=== PATIENT | female | born 1950 | race Caucasian/White ===

== ENCOUNTER 2020-07-25 08:27 | Outpatient (REF) | payer MEDICARE, SELFPAY ==
[2020-07-25 10:38] LABS: MANUAL DIFF FLAG NO
[2020-07-25 10:52] LABS: Basophils Percent Auto 0.3 % (0-2); Eosinophils Absolute Auto 0.1 X10*3/uL (0.0-0.4); Eosinophils Percent Auto 2.3 % (0-4); Hematocrit 38.1 % (37-47); Hemoglobin 12.3 g/dl (12.0-16.0); Imm Gran Abs Auto 0.02 X10*3/uL (0.00-0.03); Imm Gran Pct Auto 0.6 % (0.0-0.4); Lymphocytes Absolute Auto 1.2 X10*3/uL (1.2-4.9); Lymphocytes Percent Auto 32.5 % (20-40); Mean Corpuscular HGB Conc 32.3 g/dl (31.0-35.0); Mean Corpuscular Volume 99.2 fL (80-98); Mean Platelet Volume 11.7 fL (9.4-12.3); Monocytes Absolute Auto 0.5 X10*3/uL (0.1-1.2); Monocytes Percent Auto 14.4 % (2-11); Neutrophils Absolute Auto 1.8 X10*3/uL (2.0-8.3); Neutrophils Percent Auto 49.9 % (45-73); Platelet Count 236 X10*3/uL (160-400); Red Blood Count 3.84 X10*6/uL (4.20-5.50); Red Cell Distribution Width 13.1 % (11.0-16.0); White Blood Count 3.5 X10*3/uL (4.8-10.8)
[2020-07-25 11:02] LABS: Alanine Aminotransferase 10 U/L (0-31); Albumin Level 4.3 g/dL (3.5-5.0); Alkaline Phosphatase 44 U/L (39-117); Anion Gap 11 (12-20); Aspartate Amino Transferase 17 U/L (5-31); Bilirubin Total 0.6 mg/dL (0.0-1.0); Blood Urea Nitrogen 19 mg/dL (9-16); Calcium 9.2 mg/dL (8.4-10.2); Carbon Dioxide 29 mmol/L (22-29); Chloride 106 mmol/L (96-108); Cholesterol 179 mg/dL; Estimated Glomerular Filt Rate > 60; Glucose Fasting 90 mg/dL (60-99); HDL Cholesterol 72 mg/dL; LDL Cholesterol Calculated 95 mg/dl; Potassium 4.6 mmol/l (3.3-5.1); Sodium 141 mmol/L (135-145); Total Protein 6.8 g/dL (6.5-8.0); Triglycerides 61 mg/dL
== END 2020-07-25 08:28 | disposition home or self-care (01) ==
LOC: HO.LAB 08:27
PROVIDERS: PCP Internal Medicine; Visit Provider Internal Medicine
DX: Z00.00 Encounter for general adult medical examination without abnormal findings (principal); E78.00 Pure hypercholesterolemia, unspecified
CPT/HCPCS: 36415; 80053; 80061; 85025

== ENCOUNTER 2021-07-24 07:40 | Outpatient (REF) | payer MEDICARE, SELFPAY ==
[2021-07-24 10:25] LABS: MANUAL DIFF FLAG NO
[2021-07-24 10:31] LABS: Basophils Percent Auto 0.3 % (0-2); Eosinophils Absolute Auto 0.1 X10*3/uL (0.0-0.4); Eosinophils Percent Auto 2.8 % (0-4); Hematocrit 36.6 % (37-47); Hemoglobin 11.7 g/dl (12.0-16.0); Imm Gran Abs Auto 0.02 X10*3/uL (0.00-0.03); Imm Gran Pct Auto 0.6 % (0.0-0.4); Lymphocytes Absolute Auto 1.4 X10*3/uL (1.2-4.9); Lymphocytes Percent Auto 38.6 % (20-40); Mean Corpuscular Hemoglobin 31.6 pg (27.0-33.0); Mean Corpuscular Volume 98.9 fL (80-98); Mean Platelet Volume 11.5 fL (9.4-12.3); Monocytes Absolute Auto 0.6 X10*3/uL (0.1-1.2); Monocytes Percent Auto 17.8 % (2-11); Neutrophils Absolute Auto 1.4 X10*3/uL (2.0-8.3); Neutrophils Percent Auto 39.9 % (45-73); Platelet Count 232 X10*3/uL (160-400); Red Cell Distribution Width 12.8 % (11.0-16.0); White Blood Count 3.6 X10*3/uL (4.8-10.8)
[2021-07-24 10:47] LABS: Alanine Aminotransferase 7 U/L (0-31); Alkaline Phosphatase 45 U/L (39-117); Anion Gap 9 (12-20); Aspartate Amino Transferase 16 U/L (5-31); Bilirubin Total 0.5 mg/dL (0.0-1.0); Blood Urea Nitrogen 18 mg/dL (9-16); Calcium 9.4 mg/dL (8.4-10.2); Carbon Dioxide 28 mmol/L (22-29); Chloride 108 mmol/L (96-108); Cholesterol 160 mg/dL; Estimated Glomerular Filt Rate > 60; Glucose Fasting 90 mg/dL (60-99); HDL Cholesterol 61 mg/dL; LDL Cholesterol Calculated 86 mg/dl; Potassium 4.3 mmol/L (3.3-5.1); Sodium 141 mmol/L (135-145); Total Protein 6.4 g/dL (6.5-8.0); Triglycerides 65 mg/dL
== END 2021-07-24 07:41 | disposition home or self-care (01) ==
LOC: HO.10HDL 07:40
PROVIDERS: Visit Provider Internal Medicine
DX: E78.00 Pure hypercholesterolemia, unspecified (principal); J30.1 Allergic rhinitis due to pollen
CPT/HCPCS: 36415; 80053; 80061; 85025

== ENCOUNTER 2021-07-25 16:15 | Outpatient (REF) | payer MEDICARE, SELFPAY ==
--- NOTE | ~2021-07-25 | MM_ITS ---
EXAMINATION: MM SCREENING DIGITAL BREAST TOMOSYNTHESIS, BILATERAL CLINICAL INFORMATION: Screening. Asymptomatic. The lifetime risk of breast cancer based on the Tyrer-Cuzick Model is 5%. COMPARISON: Mammography: 06/21/2020, 03/16/2019, 02/27/2018 TECHNIQUE: Digital breast tomosynthesis is performed in both the craniocaudal and mediolateral oblique views along with computer-aided detection (CAD). Synthesized 2D images are generated from the tomosynthesis. FINDINGS: The breasts are heterogeneously dense, which may obscure small masses (ACR BI-RADS breast composition Category c). There are no significant masses, abnormal calcifications, or other abnormalities. Parenchymal pattern is similar to prior exams. No developing density. No significant changes. MM/MM tomosynthesis screening BI IMPRESSION: No mammographic evidence of malignancy. ASSESSMENT: BI-RADS 1: Negative RECOMMENDATION: Routine annual mammography screening. This patient's information was entered into a reminder system with a target due date for their next mammogram.
== END 2021-07-25 16:16 | disposition home or self-care (01) ==
LOC: HO.MAMMO 16:15
PROVIDERS: PCP Internal Medicine; Visit Provider Internal Medicine
DX: Z12.31 Encounter for screening mammogram for malignant neoplasm of breast (principal)
CPT/HCPCS: 77063; 77067

== ENCOUNTER 2022-04-03 14:49 | Outpatient (REF) | payer MEDICARE, SELFPAY ==
[2022-04-03 15:20] LABS: COVID-19 Test Negative (Negative); IDNOW Serial# 16C4AD1C
== END 2022-04-03 14:50 | disposition home or self-care (01) ==
LOC: HO.LNP 14:49
PROVIDERS: Visit Provider Internal Medicine
DX: Z20.822 Contact with and (suspected) exposure to COVID-19 (principal)
CPT/HCPCS: 87635

== ENCOUNTER 2022-07-24 07:24 | Outpatient (REF) | payer MEDICARE, SELFPAY ==
[2022-07-24 11:20] LABS: Basophils Percent Auto 0.6 % (0-2); Eosinophils Absolute Auto 0.1 X10*3/uL (0.0-0.4); Hematocrit 38.7 % (37.0-47.0); Hemoglobin 12.4 g/dl (12.0-16.0); Imm Gran Abs Auto 0.01 X10*3/uL (0.00-0.03); Imm Gran Pct Auto 0.3 % (0.0-0.4); Lymphocytes Absolute Auto 1.3 X10*3/uL (1.2-4.9); Lymphocytes Percent Auto 36.9 % (20-40); MANUAL DIFF FLAG SCAN; Mean Corpuscular Hemoglobin 31.6 pg (27.0-33.0); Mean Corpuscular Volume 98.7 fL (80.0-98.0); Mean Platelet Volume 11.6 fL (9.4-12.3); Monocytes Absolute Auto 0.8 X10*3/uL (0.1-1.2); Neutrophils Absolute Auto 1.4 x10*3/uL (2.0-8.3); Neutrophils Percent Auto 37.2 % (45-73); Platelet Count 244 X10*3/uL (160-400); Red Blood Count 3.92 X10*6/uL (4.20-5.50); SCAN SMEAR FLAG 1; White Blood Count 3.6 X10*3/uL (4.8-10.8)
[2022-07-24 11:50] LABS: SLIDE REVIEW VERIFIED
[2022-07-24 11:54] LABS: Alanine Aminotransferase 7 U/L (0-31); Albumin Level 4.1 g/dL (3.5-5.0); Alkaline Phosphatase 51 U/L (39-117); Anion Gap 14 (12-20); Aspartate Amino Transferase 15 U/L (5-31); Bilirubin Total 0.5 mg/dL (0.0-1.0); Blood Urea Nitrogen 18 mg/dL (9-16); Calcium 9.2 mg/dL (8.4-10.2); Carbon Dioxide 27 mmol/L (22-29); Chloride 106 mmol/L (96-108); Cholesterol 175 mg/dL; Estimated Glomerular Filt Rate 59; Glucose Fasting 92 mg/dL (60-99); HDL Cholesterol 61 mg/dL; LDL Cholesterol Calculated 96 mg/dl; Potassium 4.3 mmol/L (3.3-5.1); Sodium 143 mmol/L (135-145); Total Protein 6.7 g/dL (6.5-8.0); Triglycerides 94 mg/dL
[2022-07-24 12:20] LABS: Vitamin D 25-OH Total 27.1 ng/mL (>30)
== END 2022-07-24 07:25 | disposition home or self-care (01) ==
LOC: HO.WFDLDS 07:24
PROVIDERS: Visit Provider Internal Medicine
DX: E78.00 Pure hypercholesterolemia, unspecified (principal); J30.1 Allergic rhinitis due to pollen
CPT/HCPCS: 36415; 80053; 80061; 82306; 85025

== ENCOUNTER 2022-07-31 15:55 | Outpatient (REF) | payer MEDICARE, SELFPAY ==
--- NOTE | ~2022-07-31 | MM_ITS ---
EXAMINATION: MM SCREENING DIGITAL BREAST TOMOSYNTHESIS, BILATERAL CLINICAL INFORMATION: Screening. Asymptomatic. The lifetime risk of breast cancer based on the Tyrer-Cuzick Model is 5.0%. COMPARISON: Mammography: July 25, 2021 and studies dating back to December 13, 2013 TECHNIQUE: Digital breast tomosynthesis is performed in both the craniocaudal and mediolateral oblique views along with computer-aided detection (CAD). Synthesized 2D images are generated from the tomosynthesis. FINDINGS: The breasts are heterogeneously dense, which may obscure small masses (ACR BI-RADS breast composition Category c). There are no significant masses, abnormal calcifications, or other abnormalities. MM/MM tomosynthesis screening BI IMPRESSION: No significant changes from prior exam. ASSESSMENT: BI-RADS 1: Negative RECOMMENDATION: Routine annual mammography screening. This patient's information was entered into a reminder system with a target due date for their next mammogram.
== END 2022-07-31 15:56 | disposition home or self-care (01) ==
LOC: HO.MAMMO 15:55
PROVIDERS: PCP Internal Medicine; Visit Provider Internal Medicine
DX: Z12.31 Encounter for screening mammogram for malignant neoplasm of breast (principal)
CPT/HCPCS: 77063; 77067

== ENCOUNTER 2023-01-24 10:17 | Day surgery (SDC) | payer MEDICARE, SELFPAY ==
[2023-01-24 10:57] VITALS: BMI 21.1
[2023-01-24 11:04] VITALS: BP 129/40; PULSE 85; RESP 16; TEMP 36.8; O2SAT 97
[2023-01-24] MEDS: Lactated Ringers 1,000 ML 50 ML IVCONT (11:23)
--- NOTE | 2023-01-24 11:33 | HO.ANESPROP2 ---
HPI - Anesthesia Eval Consult details Narrative: for colon screen [facility] Past Medical History Medical History (Updated 01/24/23 @ 10:55 by Dianna Gordon RN) Bilateral cataracts Elevated cholesterol Insomnia Family History Family history of problems with anesthesia: No Surgical History Surgical History (Updated 01/24/23 @ 10:55 by Dianna Gordon RN) H/O blepharoplasty H/O colonoscopy History of Problems with Anesthesia: No Social History Social History Patient Tobacco Use Status: Never used Tobacco Use of substances other than those prescribed or required for medical reasons: No Are you DNR?: No Advance Directives: No Advance Directives Information Provided: Yes Recently lost weight without trying: No Nutrition Risks: No Nutritional Risk Meds Allergies Allergy/AdvReac Type Severity Reaction Status Date / Time No Known Allergies Allergy Unverified 06/29/20 15:01 Home Medications Medication Instructions Recorded Confirmed Last Taken Type Ambien 1 tab PO BEDTIME PRN Insomnia 01/23/23 01/23/23 Unknown History simvastatin 80 mg PO DAILY 01/23/23 01/24/23 01/24/23 History Exam Exam Date and Time: January 24, 2023 1133 Height,Weight and Vital Signs: Height 5 ft 7 in Weight 61.235 kg Last Vital Signs Temp 98.3 F 01/24/23 11:04 Pulse 85 01/24/23 11:04 Resp 16 01/24/23 11:04 BP 129/40 L 01/24/23 11:04 Pulse Ox 97 01/24/23 11:04 O2 Del Method Room Air 01/24/23 11:04 Airway Mallampati Class: II TM Dist: >3cm Neck ROM: Full Heart: rrr Lungs: cta Assessment and Plan Assessment Anesthesia Assessment: Anesthesia Plan Discussed and Chart Reviewed Final Anesthetic Review Family History of Problems with Anesthesia: No History of Problems with Anesthesia: No NPO: Yes ASA Class: II Final Preanesthetic Review: No Changes in Pt Med Stat, Meds/Allgs Chart Reviewed, Consent Obtained/Reviewed and Anes Risks/Benef Reviewed Patient Risk: Low Procedure Risk: Low Anesthetic Plan Anesthetic Plan: MAC: Disposition: Standard PACU
--- NOTE | 2023-01-24 11:53 | MHC.SHP ---
Pre-Procedural Eval Section A Date of Service: 01/24/23 The patient is an INPATIENT: No Changes since office visit: No Cold of Flu in the past 2 weeks, No New Medical Problems, No Changes in Medication and No Patient answered all questions The History & Physical has been completed within 30 days and I have reviewed it.: Yes Section B Chief Complaint: Encounter for screening for malignant neoplasm of Allergies: Allergies Allergy/AdvReac Type Severity Reaction Status Date / Time No Known Allergies Allergy Unverified 06/29/20 15:01 Plan I have reviewed the history and physical and performed a pertinent physical examination on my patient. No changes have occurred unless specified. Time Spent With Patient Time: Total time managing care of this patient today ____ minutes.
[2023-01-24 12:28] VITALS: BP 92/45; PULSE 70; RESP 16; TEMP 36.2; O2SAT 96
--- NOTE | 2023-01-24 12:28 | PM.OP ---
Brief Operative Note Date of Service: 01/24/23 Pre-op diagnosis: screening Post-op diagnosis: same Procedure: colonoscopy Surgeon: Kobi Graevs Anesthesia: MAC Was an Seed Cleaning Machine Operator used for this Procedure?: No Estimated blood loss (mL): 5 Pathology: other Condition: stable Disposition: PACU
[2023-01-24 12:43] VITALS: BP 121/57; PULSE 67; RESP 16; TEMP 36.6; O2SAT 97
--- NOTE | 2023-01-24 12:46 | OP_ITS ---
DATE OF SERVICE: 01/24/2023 SURGEON: Kobi Graves MD INDICATIONS: Colon cancer screening. PREOPERATIVE DIAGNOSIS: POSTOPERATIVE DIAGNOSIS: PROCEDURE PERFORMED: Colonoscopy to the terminal ileum with biopsy. ESTIMATED BLOOD LOSS: COMPLICATIONS: ANESTHESIA: Monitored anesthesia care. ASSISTANTS: SPECIMENS: DESCRIPTION OF PROCEDURE: A history and physical were performed the risks and benefits of the procedure were explained to the patient. Informed consent was obtained. The patient was placed in the left lateral decubitus position. A digital rectal exam was performed and was found to be normal. The Olympus pediatric video colonoscope was introduced into the rectum and advanced to the cecum without difficulty. The cecum was identified by transillumination, palpation, and identification of ileocecal valve. Examination was performed. The scope was removed. She tolerated the procedure well and was returned to the recovery area in stable condition. FINDINGS: The terminal ileum was briefly examined and appeared normal. The visualized colonic mucosa was within normal limits without evidence of masses or ulcers. A single polyp in the cecum measuring less than 5 mm was identified and removed with biopsy forceps. No other polyps were identified. Retroflexed examination showed moderate-sized internal hemorrhoids and hypertrophic anal papillae. The quality of the prep was good. IMPRESSION: Colon polyp. RECOMMENDATION: Follow up the biopsy results. MD CHANDLER Bustillos/RANDOLPHL / [id number]
--- NOTE | 2023-01-24 13:43 | HO.ANESPROP2 ---
HPI - Anesthesia Eval Consult details Narrative: for [facility] Past Medical History Medical History (Updated 01/24/23 @ 10:55 by Dianna Gordon RN) Bilateral cataracts Elevated cholesterol Insomnia Family History Family history of problems with anesthesia: No Surgical History Surgical History (Updated 01/24/23 @ 10:55 by Dianna Gordon RN) H/O blepharoplasty H/O colonoscopy History of Problems with Anesthesia: No Social History Social History Patient Tobacco Use Status: Never used Tobacco Use of substances other than those prescribed or required for medical reasons: No Are you DNR?: No Advance Directives: No Advance Directives Information Provided: Yes Recently lost weight without trying: No Nutrition Risks: No Nutritional Risk Meds Allergies Allergy/AdvReac Type Severity Reaction Status Date / Time No Known Allergies Allergy Unverified 06/29/20 15:01 Active Medications: Current Medications Lactated Ringer's (Lr) 1,000 mls @ 50 mls/hr IVCONT .Q20H YOVANI Last Admin: 01/24/23 11:23 Dose: 50 mls/hr Home Medications Medication Instructions Recorded Confirmed Last Taken Type Ambien 1 tab PO BEDTIME PRN Insomnia 01/23/23 01/23/23 Unknown History simvastatin 80 mg PO DAILY 01/23/23 01/24/23 01/24/23 History Exam Exam Date and Time: January 24, 2023 1343 Height,Weight and Vital Signs: Height 5 ft 7 in Weight 61.235 kg Last Vital Signs Temp 97.8 F 01/24/23 12:43 Pulse 67 01/24/23 12:43 Resp 16 01/24/23 12:43 BP 121/57 L 01/24/23 12:43 Pulse Ox 97 01/24/23 12:43 O2 Del Method Room Air 01/24/23 12:43 Airway Mallampati Class: III TM Dist: <=3cm Neck ROM: Full Heart: rrr Lungs: cta Assessment and Plan Assessment Anesthesia Assessment: Anesthesia Plan Discussed and Chart Reviewed Final Anesthetic Review Family History of Problems with Anesthesia: No History of Problems with Anesthesia: No NPO: Yes ASA Class: IV Final Preanesthetic Review: No Changes in Pt Med Stat, Meds/Allgs Chart Reviewed, Consent Obtained/Reviewed and Anes Risks/Benef Reviewed Patient Risk: Intermediate Procedure Risk: Intermediate Anesthetic Plan Anesthetic Plan: MAC: Disposition: Standard PACU
== END 2023-01-24 13:20 | disposition home or self-care (01) ==
PROVIDERS: PCP Internal Medicine; Visit Provider Internal Medicine Gastroenterology
PROC: 0DJD8ZZ Inspection of Lower Intestinal Tract, Via Natural or Artificial Opening Endoscopic (ICD-10-PCS; CPT 45378; principal; 2023-01-24 11:30)
DX: Z12.11 Encounter for screening for malignant neoplasm of colon (principal); D12.0 Benign neoplasm of cecum; K64.8 Other hemorrhoids; K62.89 Other specified diseases of anus and rectum; R19.7 Diarrhea, unspecified; K21.9 Gastro-esophageal reflux disease without esophagitis; E78.00 Pure hypercholesterolemia, unspecified; G47.00 Insomnia, unspecified; Z79.899 Other long term (current) drug therapy
CPT/HCPCS: 45380; 88305; J2370

== ENCOUNTER 2023-07-22 07:04 | Outpatient (REF) | payer MEDICARE, SELFPAY | END 2023-07-22 07:05 | disposition home or self-care (01) | LOC: HO.WFDLDS 07:04 | PROVIDERS: Visit Provider Internal Medicine | DX: E78.00 Pure hypercholesterolemia, unspecified (principal); E55.9 Vitamin D deficiency, unspecified; J30.1 Allergic rhinitis due to pollen | CPT/HCPCS: 36415; 80053; 80061; 82306; 85025 ==

== ENCOUNTER 2023-08-06 15:38 | Outpatient (REF) | payer MEDICARE, SELFPAY | END 2023-08-06 15:39 | disposition home or self-care (01) | LOC: HO.MAMMO 15:38 | PROVIDERS: PCP Internal Medicine; Visit Provider Internal Medicine | DX: Z12.31 Encounter for screening mammogram for malignant neoplasm of breast (principal) | CPT/HCPCS: 77063; 77067 ==

== ENCOUNTER → 2023-08-06 16:00 | Outpatient (BNV) | payer MEDICARE, SELFPAY | PROVIDERS: PCP Internal Medicine; Visit Provider Radiology Diagnostic Radiology | DX: Z12.31 Encounter for screening mammogram for malignant neoplasm of breast (principal) | CPT/HCPCS: 77063; 77067 ==

== ENCOUNTER 2024-07-27 07:52 | Outpatient (REF) | payer MEDICARE, SELFPAY ==
[2024-07-27 11:11] LABS: MANUAL DIFF FLAG NO
[2024-07-27 11:29] LABS: Basophils Percent Auto 0.4 % (0-2); Eosinophils Absolute Auto 0.1 X10*3/uL (0.0-0.4); Eosinophils Percent Auto 1.7 % (0-4); Hematocrit 38.5 % (37.0-47.0); Hemoglobin 12.1 g/dl (12.0-16.0); Imm Gran Abs Auto 0.02 X10*3/uL (0.00-0.03); Imm Gran Pct Auto 0.4 % (0.0-0.4); Lymphocytes Absolute Auto 1.3 X10*3/uL (1.2-4.9); Mean Corpuscular HGB Conc 31.4 g/dl (31.0-35.0); Mean Corpuscular Hemoglobin 31.1 pg (27.0-33.0); Mean Platelet Volume 11.3 fL (9.4-12.3); Monocytes Absolute Auto 0.7 X10*3/uL (0.1-1.2); Monocytes Percent Auto 13.7 % (2-11); Neutrophils Absolute Auto 2.7 x10*3/uL (2.0-8.3); Neutrophils Percent Auto 55.8 % (45-73); Platelet Count 257 X10*3/uL (160-400); Red Blood Count 3.89 X10*6/uL (4.20-5.50); Red Cell Distribution Width 12.6 % (11.0-16.0); White Blood Count 4.8 X10*3/uL (4.8-10.8)
[2024-07-27 11:54] LABS: Alanine Aminotransferase 10 U/L (0-31); Alkaline Phosphatase 42 U/L (39-117); Anion Gap 11 (12-20); Aspartate Amino Transferase 19 U/L (5-31); Bilirubin Total 0.5 mg/dL (0.0-1.0); Blood Urea Nitrogen 18 mg/dL (9-16); Calcium 9.7 mg/dL (8.4-10.2); Carbon Dioxide 28 mmol/L (22-29); Chloride 107 mmol/L (96-108); Cholesterol 165 mg/dL (<200); Estimated Glomerular Filt Rate > 60; Glucose Fasting 89 mg/dL (60-99); HDL Cholesterol 58 mg/dL (>40); LDL Cholesterol Calculated 93 mg/dL (<100); Potassium 4.2 mmol/L (3.3-5.1); Sodium 142 mmol/L (135-145); Total Protein 6.9 g/dL (6.5-8.0); Triglycerides 71 mg/dL (<150)
== END 2024-07-27 07:53 | disposition home or self-care (01) ==
LOC: HO.WFDLDS 07:52
PROVIDERS: Visit Provider Internal Medicine
DX: E78.00 Pure hypercholesterolemia, unspecified (principal); N18.9 Chronic kidney disease, unspecified; E55.9 Vitamin D deficiency, unspecified
CPT/HCPCS: 36415; 80053; 80061; 82306; 85025

== ENCOUNTER 2024-08-11 08:49 | Outpatient (REF) | payer MEDICARE, SELFPAY ==
--- NOTE | ~2024-08-11 | MM_ITS ---
EXAMINATION: MM SCREENING DIGITAL BREAST TOMOSYNTHESIS, BILATERAL CLINICAL INFORMATION: Screening. Asymptomatic. COMPARISON: Mammography: Comparison is made with available priors TECHNIQUE: Digital breast mammography with tomosynthesis is performed in both the craniocaudal and mediolateral oblique views along with computer-aided detection (CAD). FINDINGS: The breasts are heterogeneously dense, which may obscure small masses (ACR BI-RADS breast composition Category c). There are no significant masses, abnormal calcifications, or other abnormalities. MM/MM tomosynthesis screening BI IMPRESSION: No mammographic evidence of malignancy. ASSESSMENT: BI-RADS BI-RADS 1 - Negative RECOMMENDATION: Routine annual mammography screening. 1 year F/U This examination should not preclude the clinical evaluation of a suspicious palpable abnormality. This patient's information was entered into a reminder system with a target due date for their next mammogram. Electronically signed by: Dee Muñoz DO 08/19/2024 10:47 AM ALEJANDRA
== END 2024-08-11 08:50 | disposition home or self-care (01) ==
LOC: HO.MAMMO 08:49
PROVIDERS: PCP Internal Medicine; Visit Provider Internal Medicine
DX: Z12.31 Encounter for screening mammogram for malignant neoplasm of breast (principal)
CPT/HCPCS: 77063; 77067

== ENCOUNTER → 2024-08-11 09:00 | Outpatient (BNV) | payer MEDICARE, SELFPAY | PROVIDERS: PCP Internal Medicine; Visit Provider Internal Medicine | DX: Z12.31 Encounter for screening mammogram for malignant neoplasm of breast (principal) | CPT/HCPCS: 77063; 77067 ==

== ENCOUNTER 2025-01-14 09:02 | Outpatient (AMB) | payer MEDICARE, SELFPAY ==
--- NOTE | 2025-01-14 09:10 | A.OFFPC_ITS ---
Vital Signs 3 01/14/25 09:12 Height 5 ft 7.32 in Weight 135 lb 8 oz BMI 21.0 BP 110/66 Blood Pressure Location Lt brachial Position Sitting Pulse 82 Pulse Source Pulse Oximeter Temp 97 F Temp Source Temporal Artery Scan Pulse Oximetry (%) 95 Oxygen Delivery Method Room Air Intake Visit Reasons: Establish care- previous Tabitha patient Intake Note: Patient is a new patient here to establish care for High cholesterol, Insomnia, Seasonal Allergies. Transferring care from Dr Lu. Medical records have been requested and have received. Human Resources Representative Required: No Piccolo Mechanic: Not Required per policy Accompanied by: Self / Same As Patient Allergies No Known Allergies Allergy (Verified 01/14/25 09:18) Medication List - Last Reconciled 01/14/25 by Huong Chang PA-C simvastatin 40 mg PO BEDTIME zolpidem 5 mg PO BEDTIME PRN Tobacco use date assessed: 01/14/25 Fall risk assessment: No Falls in past year Last assessed Fall Risk: 01/14/25 Dental Screening Dental Screen Date: 01/14/25 Did you have a dental visit in the last 12 months?: Yes Did you have a dental problem in the last 6 months where you did not have access to dental care?: No Was dental information given to patient?: Patient has dentist HPI Establish care- previous Tabitha patient 2 HPI0 Details 74-year-old female coming to the office for the 1st time. Last seen by Dr. Lu 07/23/2024 for annual exam. Patient has a past medical history of insomnia, low vitamin-D, chronic renal insufficiency and hypercholesterolemia. Presenting with management of hypercholesterolemia and insomnia. Previously diagnosed with hypercholesterolemia, controlled with Simvastatin 80 mg, with a recent cholesterol level of 93 mg/dL. Due to risks of muscle breakdown, a reduction to Simvastatin 40 mg is advised, given no cardiac or diabetic history. Insomnia persists over several decades, worsened by travel. Successfully managed on low-dose Ambien and OTC sleep aids. Patient requires Ambien for travel- related insomnia. Asymptomatic lipoma on the hand noted. Patient has a very active lifestyle with hiking and biking. Mammogram: 08/11/2024 DEXA scan: due plan for Jul 2024 Eye exam: UTD Colonoscopy: 2022 likely 10 years [facility] Medical History Bilateral cataracts Insomnia Elevated cholesterol Surgical History H/O blepharoplasty H/O colonoscopy Social History Housing: House Alcohol intake: current Alcohol intake frequency: holidays/special occasions only Patient Tobacco Use Status: Never used Tobacco e-Cigarette/Vaping Use: Never Used Second Hand Smoke Exposure: No service: No Current occupational status: retired Cognitive needs: No Hearing needs: No Vision needs: Yes (Reading Glasses) Questionnaire PHQ-9 Over the last 2 weeks, how often have you been bothered by any of the following problems? 1. Little interest or pleasure in doing things: not at all 2. Feeling down, depressed, or hopeless: not at all 3. Trouble falling or staying asleep, or sleeping too much: not at all 4. Feeling tired or having little energy: not at all 5. Poor appetite or overeating: not at all 6. Feeling bad about yourself - or that you are a failure or have let yourself or your family down: not at all 7. Trouble concentrating on things, such as reading the newspaper or watching television: not at all 8. Moving or speaking so slowly that other people could have noticed. Or the opposite - being so fidgety or restless that you have been moving around a lot more than usual: not at all 9. Thoughts that you would be better off or of hurting yourself in some way: not at all Total score: 0 Depression Screening Interpretation: Negative Depression Screening Done: Yes Source: Developed by Drs. Tom Cr, Angelika Murillo, Antwan Espinoza and colleagues, with an educational rommel from [employer]. Thrive Questionnaire Date Thrive assessed: 01/09/25 I am a: Patient What is your living situation today?: I have a steady place to live Within the past 12 months, did the food you bought not last and you didn't have the money to get more?: Never true Within the past 12 months, did you worry whether your food would run out before you got money to buy more?: Never true Do you have trouble paying for medicines?: No Do you have trouble getting transportation to medical appointments?: No Do you have trouble paying your heating and electricity bill?: No Do you have trouble taking care of your child, family member or friend?: No Do you have trouble with day-to-day activities such as bathing, preparing meals, shopping, managing finances, etc.?: No Are you currently unemployed and looking for a job?: No Are you interested in more education?: No Please select the resources that you would like help with: None Currently or been in a relationship where the following occur: No concerns reported THRIVE Score: 0 AUDIT C Alcohol Use Questionnaire (AUDIT-C) 1. How often do you have a drink containing alcohol?: 2-4 times a month 2. How many drinks containing alcohol do you have on a typical day when you are drinking?: 1 or 2 3. How often do you have six or more drinks on one occasion?: Never Total Score: 2 SYMONE-7 AMB Questionnaire SYMONE-7 Date SYMONE - 7 assessed: 01/14/25 Feeling nervous, anxious, or on edge: 0 = Not at all Not being able to stop or control worryin = Not at all Worrying too much about different things: 0 = Not at all Trouble relaxin = Not at all Being so restless that it is hard to sit still: 0 = Not at all Becoming easily annoyed or irritable: 0 = Not at all Feeling afraid as if something awful might happen: 0 = Not at all Total SYMONE-7 score (0-4 normal; 5-9 mild; 10-14 moderate; 15-21 severe): 0 Source: Developed by Drs. Tom Cr, Angelika Murillo, Antwan Espinoza and colleagues, with an educational rommel from [employer]. SYMONE-7 Assessment Billing SYMONE-7 Assessment Tool: SYMONE-7 Assessment 70646 Review of Systems Const Denies body aches, Denies chills, Denies fever(s), Denies headache(s) and Denies poor appetite Eyes Reports no additional complaints ENT Denies dysphagia, Denies dizziness, Denies headache(s) and Denies odynophagia Card Denies chest pain, Denies syncope, Denies edema, Denies irregular heart rhythm, Denies lightheadedness and Denies dyspnea Resp Denies cough and Denies dyspnea GI Denies abdominal pain, Denies constipation, Denies dysphagia, Denies diarrhea, Denies nausea, Denies odynophagia and Denies vomiting Reports no additional complaints Musc Reports no additional complaints and Denies abnormal gait Skin/Breast Reports system reviewed and no additional complaints, except as documented Neuro Denies abnormal gait, Denies dizziness, Denies syncope and Denies headache(s) Psych Reports no additional complaints Physical exam (Primary Care) Vital Signs: Last Vital Signs Temp 97 F 01/14/25 09:12 Pulse 82 01/14/25 09:12 BP 110/66 01/14/25 09:12 Pulse Ox 95 01/14/25 09:12 Oxygen Delivery Method Room Air 01/14/25 09:12 BMI result Body Mass Index 21.0 Tobacco/Smoking Status: Tobacco use Status Tobacco use date assessed 01/14/25 01/14/25 09:13 Patient Tobacco Use Status Never used Tobacco 01/14/25 09:19 e-Cigarette/Vaping Use Never Used 01/14/25 09:19 PHQ-9: PHQ-9 Score PHQ-9: Total score 0 01/14/25 09:13 Depression Screening Interpretation: Negative Thrive Assessment: Date of Thrive Assessment Date Thrive assessed 01/09/25 01/14/25 09:13 Currently or been in a relationship where the following occur: No concerns reported Const General: cooperative, healthy appearing, comfortable and no acute distress Orientation/consciousness: patient oriented x3 [facility] Head: Yes normocephalic Ears: hearing grossly normal bilaterally General nose exam: Normal external nose present Eyes General: appearance normal, both eyes and all related structures Conjunctivae: conjunctivae normal Neck Neck: Yes full ROM and Yes no lymphadenopathy Resp Effort & Inspection: normal respiratory effort Auscultation: clear to auscultation bilaterally, no crackles, no rales, no rhonchi and no wheezes Cardio Rate: regular rate Rhythm: regular rhythm Skin General skin exam: no rashes or lesions noted Neuro General: patient oriented x3 Gait exam (Neuro): Normal gait present Extrem General: Yes normal to inspection, Yes full ROM and No edema Hand/finger images: 2 1. small, soft, nontender mass with normal borders Psych Affect: normal affect Attitude: cooperative Insight: Good insight present (Psych) Judgement: Good judgement present (Psych) Coding Level of Care Code New Pt Level 4 (06434) Diagnoses Chronic renal insufficiency N18.9 Vitamin D deficiency E55.9 Hay fever J30.1 Hypercholesterolemia E78.00 Insomnia G47.00 Lipoma D17.9 Additional Codes SYMONE-7 Assessment Billing - SYMONE-7 Assessment Tool: SYMONE-7 Assessment 04090 ([id number]) Assessment & Plan Assessment & Plan (1) Chronic renal insufficiency: Code(s): N18.9 - Chronic kidney disease, unspecified Category: Medical Plan: Continue to monitor renal function. Avoid kidney irritants such as NSAIDs and stay well hydrated. (2) Vitamin D deficiency: Code(s): E55.9 - Vitamin D deficiency, unspecified Category: Medical Plan: Not currently on supplementation with vitamin-D. Continue to monitor lab work (3) Hay fever: Code(s): J30.1 - Allergic rhinitis due to pollen Category: Medical Plan: Use [id number] antihistamines as needed for allergy season. (4) Hypercholesterolemia: Comment: LDL 93 07/2024 Code(s): E78.00 - Pure hypercholesterolemia, unspecified Category: Medical Plan: Avoid foods that are high in cholesterol such as red meat, fried foods, eggs and baked goods. Triglyceride goal of less than 150 and LDL goal of less than 100. Plan to decrease Simvastatin to 40mg and repeat labs in 3 months. (5) Insomnia: Code(s): G47.00 - Insomnia, unspecified Category: Medical Plan: Patient is currnently using Ambien as needed for sleep. (6) Lipoma: Code(s): D17.9 - Benign lipomatous neoplasm, unspecified Category: Medical Plan: Soft tissue mass of the right palm likely a lipoma. Plan to continue to monitor at this time. I did offer referral to general surgery for removal which was declined. Plan I will adjust the patient's Simvastatin dosage to 40 mg to reduce the risks of muscle side effects while controlling cholesterol effectively, monitoring lipid levels after three months. Dietary advice on reducing cholesterol intake was discussed. Ambien 5 mg is prescribed for her travel-related insomnia. Vitamin D levels will be monitored, continuing with current supplementation routine. The asymptomatic lipoma will be monitored at this time. Planning for future screenings remain scheduled for July. Ongoing monitoring of laboratory parameters including kidney and liver function is crucial for comprehensive care. This note was constructed using voice recognition software. While every effort has been made to ensure accuracy and solar photovoltaic crew lead, still areas may have been included sometimes these areas may affect the content or meeting of the given symptoms. Total time spent caring for the patient today was 30 minutes. This includes time spent before the visit reviewing the chart, time spent during the visit, and time spent after the visit and documentation. Patient was informed and verbally consented to the use of an ambient scribe for clinic note documentation during this visit. Orders: Orders 2 Vitamin D 25-OH Total Today E55.9 - Vitamin D deficiency, unspecified Comprehensive Met. Panel Today N18.9 - Chronic kidney disease, unspecified Lipid Panel Today E78.00 - Pure hypercholesterolemia, unspecified Medications: New 2 simvastatin 40 mg PO BEDTIME 90 tabs 0RF zolpidem 5 mg PO BEDTIME PRN 30 tabs 0RF sleep
[2025-01-14 09:12] VITALS: BP 110/66; PULSE 82; TEMP 36.1; O2SAT 95; BMI 21.0
--- OUTSIDE RECORDS SUMMARY | 2025-01-14 09:43 | XMS_ITS | Patient Health Record ---
Author Organization [facility] Address [address] [place] [address] Care Team Providers Care Intramural Director Name Role Phone Bob Lu MD Primary Care Provider Kobi Oswald Jr Unavailable Allergies Allergen (clinical drug ingredient) Drug/Non Drug Allergy documented on EMR Reaction Allergy Type Onset Date Status season (uncoded) Unknown Allergy Act cal Reason For Referral No Information Medications Medication SIG (Take, Route, Frequency, Duration) Notes Start Date End Date Status Ambien 5 MG 1 tablet at bedtime Orally Once a day 01/15/2023 Active Simvastatin 80 MG Oral for 90 Active MiraLax (colon prep) 17 GM/SCOOP mixed with Gatorade or Crystal Light Orally begin at 5:00 p.m. the day before the procedure for 1 day 01/16/2023 Active Immunizations Vaccine Route Administration Date Status Comme nts Influenza Unknown 07/30/2022 Administered Social History Tobacco Use: Social History Observation Description Date Details (start date - stop date) Never Smoker NA - NA Tobacco Use/Smoking Question Answer Notes Patient is a nonsmoker Alcohol Screen Question Answer Notes Did you have a drink contain ing alcohol in the past year? Yes How often did you have a dri nk containing alcohol in the past year? Monthly or less (1 point) How many drinks did you have on a typical day when you were drinking in the past year? 1 or 2 drinks (0 point) How often did you have 6 or more drinks on one occasion in the past year? Never (0 point) Points 1 Interpretation Negative Problems Problem Type SNOMED Code ICD Code Onset Dates Problem Status W/U Status Risk Notes Problem 246857454 Colon cancer screening (Z12.11) Active confirmed Problem 05870947 Diarrhea, unspecified type (R19.7) Active confirmed Problem 213202150 Gastroesophageal reflux disease, unspecified whether esophagitis present (K21.9) Active confirmed Plan Of Treatment Future Test Test Name Order Date COLONOSCOPY 01/15/2023 Insurance Providers Payer Name Payer Address Payer Phone Subscriber Number Group Number Insured Name Patient Relationship to Insured Coverage Start Date Coverage End Date [facility] [address] [place], [place] [id number] SINDY HOLMAN Self - patient is the insured [employer] ATT[employer] CLAIMS [address] [place] [address] [id number] SINDY HOLMAN Self - patient is the insured Medical (General) History Medical History History ICD Code Elevated cholesterol Insomnia Colonoscopy 06/23/02, normal, ten-year fo llowup Surgical History Surgery Date(Month/Year)
== END 2025-01-14 09:49 | disposition home or self-care (01) ==
LOC: HO.HMCH 09:03
PROVIDERS: PCP Internal Medicine
DX: N18.9 Chronic kidney disease, unspecified (principal); E55.9 Vitamin D deficiency, unspecified; J30.1 Allergic rhinitis due to pollen; E78.00 Pure hypercholesterolemia, unspecified; G47.00 Insomnia, unspecified; D17.9 Benign lipomatous neoplasm, unspecified

== ENCOUNTER → 2025-01-14 09:02 | Outpatient (BNVA) | payer MEDICARE, SELFPAY | PROVIDERS: PCP Internal Medicine | DX: E78.00 Pure hypercholesterolemia, unspecified (principal); N18.9 Chronic kidney disease, unspecified; E55.9 Vitamin D deficiency, unspecified; J30.1 Allergic rhinitis due to pollen; G47.00 Insomnia, unspecified; D17.9 Benign lipomatous neoplasm, unspecified; Z91.09 Other allergy status, other than to drugs and biological substances | CPT/HCPCS: 96127; 99202 ==

== ENCOUNTER 2025-04-11 07:45 | Outpatient (REF) | payer MEDICARE, SELFPAY ==
--- OUTSIDE RECORDS SUMMARY | 2025-04-11 07:48 | XMS_ITS | Patient Health Record ---
Author Organization [facility] Address [address] [place] [address] Care Team Providers Care Electrode Turner And Finisher Name Role Phone Bob Lu MD Primary Care Provider Kobi Oswald Jr Unavailable [phone] Allergies Allergen (clinical drug ingredient) Drug/Non Drug [...] Problem Status W/U Status Risk Notes Problem 810422351 Colon cancer screening (Z12.11) Active confirmed Problem 39943006 Diarrhea, unspecified type (R19.7) Active confirmed Problem 347195548 Gastroesophageal reflux disease, unspecified whether esophagitis present (K21.9) Active confirmed Plan Of Treatment Future Test Test Name Order Date COLONOSCOPY 01/15/2023 Insurance Providers Payer Name Payer Address Payer Phone Subscriber Number Group Number Insured Name Patient Relationship to Insured Coverage Start Date Coverage End Date [facility] [address] [place], [place] [id number] SINDY HOLMAN Self - patient is the insured [employer] ATT[employer] CLAIMS [address] [place] [address] [id number] SINDY HOLMAN Self - patient is the insured Medical (General) History Medical History History ICD Code Elevated cholesterol Insomnia Colonoscopy 06/23/02, normal, ten-year fo llowup Surgical History Surgery Date(Month/Year)
[2025-04-11 09:37] LABS: Alanine Aminotransferase 11 U/L (0-31); Albumin Level 4.3 g/dL (3.5-5.0); Alkaline Phosphatase 49 U/L (39-117); Anion Gap 9 (12-20); Aspartate Amino Transferase 21 U/L (5-31); Bilirubin Total 0.5 mg/dL (0.0-1.0); Blood Urea Nitrogen 24 mg/dL (9-16); Calcium 9.3 mg/dL (8.4-10.2); Carbon Dioxide 28 mmol/L (22-29); Chloride 109 mmol/L (96-108); Cholesterol 204 mg/dL (<200); Estimated Glomerular Filt Rate 60; Glucose Random 93 mg/dL (60-115); HDL Cholesterol 67 mg/dL (>40); LDL Cholesterol Calculated 118 mg/dL (<100); Potassium 4.2 mmol/L (3.3-5.1); Sodium 142 mmol/L (135-145); Total Protein 7.3 g/dL (6.5-8.0); Triglycerides 95 mg/dL (<150)
[2025-04-11 09:57] LABS: Vitamin D 25-OH Total 58.9 ng/mL (>30)
== END 2025-04-11 07:46 | disposition home or self-care (01) ==
LOC: HO.LAB 07:45
DX: E55.9 Vitamin D deficiency, unspecified (principal); N18.9 Chronic kidney disease, unspecified; E78.00 Pure hypercholesterolemia, unspecified
CPT/HCPCS: 36415; 80053; 80061; 82306

== ENCOUNTER 2025-04-19 09:20 | Outpatient (AMB) | payer MEDICARE, SELFPAY ==
[2025-04-19 09:22] VITALS: BP 118/60; PULSE 85; RESP 16; TEMP 36.2; O2SAT 96; BMI 21.0
--- NOTE | 2025-04-19 09:22 | MHC.PC.OV ---
Vital Signs 04/19/25 09:22 Height 5 ft 7.32 in Weight 135 lb 6 oz BMI 21.0 BP 118/60 Blood Pressure Location Lt brachial Position Sitting Respiration 16 Pulse 85 Pulse Source Pulse Oximeter Temp 97.1 F Temp Source Temporal Artery Scan Pulse Oximetry (%) 96 Oxygen Delivery Method Room Air Intake Visit Reasons: f/u cholesterol Allergies No Known Allergies Allergy (Verified 04/19/25 09:40) Medication List - Last Reconciled 04/19/25 by Huong Chang PA-C simvastatin 40 mg PO BEDTIME zolpidem 5 mg PO BEDTIME PRN Tobacco use date assessed: 01/14/25 Fall risk assessment: No Falls in past year Last assessed Fall Risk: 04/19/25 Dental Screening Dental Screen Date: 01/14/25 Did you have a dental visit in the last 12 months?: Yes Did you have a dental problem in the last 6 months where you did not have access to dental care?: No Was dental information given to patient?: Patient has dentist HPI f/u cholesterol HPI Details 75 year old female with past medical history of insomnia, renal insufficiency and hypercholesterolemia last seen 01/2025 coming in for follow up. At her last visit Simvastatin was decreased to 40mg. Presenting for a follow-up visit to manage hyperlipidemia and discuss nocturia and insomnia. The patient was previously on 80 mg of simvastatin, which was reduced to 40 mg. Recent blood work showed LDL cholesterol at 118 mg/dL, which is within the target range without a history of cardiovascular events or diabetes. The patient reports increased frequency of urination at night, which disrupts her sleep. She denies urinary incontinence or urgency during the day. The patient experiences difficulty sleeping, particularly when traveling. She uses zolpidem occasionally and is aware of its addictive potential. The patient is scheduled for a mammogram and bone density screening in August. She maintains an active lifestyle, engaging in biking, hiking, and yoga. [facility] Medical History Bilateral cataracts Insomnia Elevated cholesterol Surgical History H/O blepharoplasty H/O colonoscopy Social History Housing: House Alcohol intake: current Alcohol intake frequency: holidays/special occasions only Patient Tobacco Use Status: Never used Tobacco e-Cigarette/Vaping Use: Never Used Second Hand Smoke Exposure: No service: No Current occupational status: retired Cognitive needs: No Hearing needs: No Vision needs: Yes (Reading Glasses) Questionnaire PHQ-9 Over the last 2 weeks, how often have you been bothered by any of the following problems? 1. Little interest or pleasure in doing things: not at all 2. Feeling down, depressed, or hopeless: not at all 3. Trouble falling or staying asleep, or sleeping too much: not at all 4. Feeling tired or having little energy: not at all 5. Poor appetite or overeating: not at all 6. Feeling bad about yourself - or that you are a failure or have let yourself or your family down: not at all 7. Trouble concentrating on things, such as reading the newspaper or watching television: not at all 8. Moving or speaking so slowly that other people could have noticed. Or the opposite - being so fidgety or restless that you have been moving around a lot more than usual: not at all 9. Thoughts that you would be better off or of hurting yourself in some way: not at all Total score: 0 Depression Screening Interpretation: Negative Depression Screening Done: Yes Source: Developed by Drs. Tom Cr, Angelika Murillo, Antwan Espinoza and colleagues, with an educational rommel from [employer]. Thrive Questionnaire Date Thrive assessed: 01/09/25 I am a: Patient What is your living situation today?: I have a steady place to live Within the past 12 months, did the food you bought not last and you didn't have the money to get more?: Never true Within the past 12 months, did you worry whether your food would run out before you got money to buy more?: Never true Do you have trouble paying for medicines?: No Do you have trouble getting transportation to medical appointments?: No Do you have trouble paying your heating and electricity bill?: No Do you have trouble taking care of your child, family member or friend?: No Do you have trouble with day-to-day activities such as bathing, preparing meals, shopping, managing finances, etc.?: No Are you currently unemployed and looking for a job?: No Are you interested in more education?: No Please select the resources that you would like help with: None Currently or been in a relationship where the following occur: No concerns reported THRIVE Score: 0 AUDIT C Alcohol Use Questionnaire (AUDIT-C) 1. How often do you have a drink containing alcohol?: 2-4 times a month 2. How many drinks containing alcohol do you have on a typical day when you are drinking?: 1 or 2 3. How often do you have six or more drinks on one occasion?: Never Total Score: 2 SYMONE-7 AMB Questionnaire SYMONE-7 Date SYMONE - 7 assessed: 01/14/25 Feeling nervous, anxious, or on edge: 0 = Not at all Not being able to stop or control worryin = Not at all Worrying too much about different things: 0 = Not at all Trouble relaxin = Not at all Being so restless that it is hard to sit still: 0 = Not at all Becoming easily annoyed or irritable: 0 = Not at all Feeling afraid as if something awful might happen: 0 = Not at all Total SYMONE-7 score (0-4 normal; 5-9 mild; 10-14 moderate; 15-21 severe): 0 Source: Developed by Drs. Tom Cr, Angelika Murilol, Antwan Espinoza and colleagues, with an educational rommel from [employer]. Review of Systems Const Denies body aches, Denies chills, Denies fever(s), Denies headache(s) and Denies poor appetite Eyes Reports no additional complaints ENT Denies headache(s) Card Denies chest pain, Denies lightheadedness and Denies dyspnea Resp Denies dyspnea Reports as per HPI Musc Reports no additional complaints and Denies abnormal gait Skin/Breast Reports system reviewed and no additional complaints, except as documented Neuro Denies abnormal gait and Denies headache(s) Psych Reports no additional complaints Physical exam (Primary Care) Vital Signs: Last Vital Signs Temp 97.1 F 04/19/25 09:22 Pulse 85 04/19/25 09:22 Resp 16 04/19/25 09:22 BP 118/60 04/19/25 09:22 Pulse Ox 96 04/19/25 09:22 Oxygen Delivery Method Room Air 07/08/25 09:22 BMI result Body Mass Index 21.0 Tobacco/Smoking Status: Tobacco use Status Tobacco use date assessed 01/14/25 04/19/25 09:27 Patient Tobacco Use Status Never used Tobacco 04/19/25 09:27 e-Cigarette/Vaping Use Never Used 04/19/25 09:27 PHQ-9: PHQ-9 Score PHQ-9: Total score 0 04/19/25 09:27 Depression Screening Interpretation: Negative Thrive Assessment: Date of Thrive Assessment Date Thrive assessed 01/09/25 04/19/25 09:27 Currently or been in a relationship where the following occur: No concerns reported Const General: cooperative, healthy appearing, comfortable and no acute distress Orientation/consciousness: patient oriented x3 HENMT Head: Yes normocephalic Ears: hearing grossly normal bilaterally General nose exam: Normal external nose present Eyes General: appearance normal, both eyes and all related structures Conjunctivae: conjunctivae normal Neck Neck: Yes full ROM and Yes no lymphadenopathy Resp Effort & Inspection: normal respiratory effort Auscultation: clear to auscultation bilaterally, no crackles, no rales, no rhonchi and no wheezes Cardio Rate: regular rate Rhythm: regular rhythm Skin General skin exam: no rashes or lesions noted Neuro General: patient oriented x3 Gait exam (Neuro): Normal gait present Extrem General: Yes normal to inspection, Yes full ROM and No edema Psych Affect: normal affect Attitude: cooperative Insight: Good insight present (Psych) Judgement: Good judgement present (Psych) Coding Level of Care Code Est Pt Level 3 (96096) Diagnoses Hypercholesterolemia E78.00 Vitamin D deficiency E55.9 Chronic renal insufficiency N18.9 Nocturia R35.1 Assessment & Plan Assessment & Plan (1) Hypercholesterolemia: Comment: LDL 93 07/2024 Code(s): E78.00 - Pure hypercholesterolemia, unspecified Category: Medical Plan: Avoid foods that are high in cholesterol such as red meat, fried foods, eggs and baked goods. Triglyceride goal of less than 150 and LDL goal of less than 130. Continue on Simvastatin 40mg. (2) Vitamin D deficiency: Code(s): E55.9 - Vitamin D deficiency, unspecified Category: Medical Plan: Continue with Vitamin D supplement, last Vitamin D level are WNL. (3) Chronic renal insufficiency: Code(s): N18.9 - Chronic kidney disease, unspecified Category: Medical Plan: Continue to monitor renal function. Avoid kidney irritants such as NSAIDs and stay well hydrated. Last Cr WNL. (4) Nocturia: Code(s): R35.1 - Nocturia Category: Medical Plan: Patient reporting nocturia with urinating 2-3 times per night sometimes less. She does drink fluids prior to bed time which likely is contributing. She denies any daytime symptoms and does not have any degree of incontinence. Recommend decreasing fluid intake 1-2 hours prior to bedtime and follow up as needed. Plan The patient will continue on the reduced dose of simvastatin at 40 mg, as her LDL cholesterol remains within the target range. Dietary modifications are advised to prevent further increases in cholesterol levels, specifically avoiding fried foods, egg yolks, and red meats. For nocturia, the patient is advised to restrict fluid intake two to three hours before bedtime to minimize nighttime urination. No pharmacological intervention is deemed necessary at this time due to the absence of incontinence or urgency. Regarding insomnia, the patient is encouraged to use zolpidem sparingly due to its addictive potential. Alternative options such as Benadryl may be considered to aid sleep, especially when disrupted by travel. Preventative care measures include scheduling a bone density screening and a mammogram in August. The patient is encouraged to maintain her active lifestyle, which includes biking, hiking, and yoga, to support overall health and bone strength. This note was constructed using voice recognition software. While every effort has been made to ensure accuracy and seismograph computer, still areas may have been included sometimes these areas may affect the content or meeting of the given symptoms. Total time spent caring for the patient today was 30 minutes. This includes time spent before the visit reviewing the chart, time spent during the visit, and time spent after the visit and documentation. Patient was informed and verbally consented to the use of an ambient scribe for clinic note documentation during this visit. Orders: Orders Complete Blood Count Auto Diff 6 Months Z00.00 - Encounter for general adult medical examination without abnormal findings Lipid Panel 6 Months E78.00 - Pure hypercholesterolemia, unspecified Comprehensive Met. Panel 6 Months Z00.00 - Encounter for general adult medical examination without abnormal findings TSH reflex Free T4 Today G47.00 - Insomnia, unspecified Free T4 (Free Thyroxine) Today G47.00 - Insomnia, unspecified XR DEXA axial skeleton Today Z78.0 - Asymptomatic menopausal state Medications: Refilled simvastatin 40 mg PO BEDTIME 90 tabs 2RF
--- OUTSIDE RECORDS SUMMARY | 2025-04-19 09:46 | XMS_ITS | Patient Health Record ---
Author Organization [facility] Address [address] [place] [address] Care Team Providers Care Farm Service Consultant Name Role Phone Bob Lu MD Primary [...] Problem Status W/U Status Risk Notes Problem 559579298 Colon cancer screening (Z12.11) Active confirmed Problem 60308907 Diarrhea, unspecified type (R19.7) Active confirmed Problem 268575087 Gastroesophageal reflux disease, unspecified whether esophagitis present (K21.9) Active confirmed Plan Of Treatment Future Test Test Name Order Date COLONOSCOPY 01/15/2023 Insurance Providers Payer Name Payer Address Payer Phone Subscriber Number Group Number Insured Name Patient Relationship to Insured Coverage Start Date Coverage End Date [facility] [address] [place], [place] [id number] SINDY HOLMAN Self - patient is the insured [employer] ATT[employer] CLAIMS [address] [place] [address] [id number] SINDY HOLMAN Self - patient is the insured Medical (General) History Medical History History ICD Code Elevated cholesterol Insomnia Colonoscopy 06/23/02, normal, ten-year fo llowup Surgical History Surgery Date(Month/Year)
== END 2025-04-19 09:57 | disposition home or self-care (01) ==
LOC: HO.HMCH 09:21
PROVIDERS: PCP Internal Medicine
DX: E78.00 Pure hypercholesterolemia, unspecified (principal); E55.9 Vitamin D deficiency, unspecified; N18.9 Chronic kidney disease, unspecified; R35.1 Nocturia

== ENCOUNTER → 2025-04-19 09:20 | Outpatient (BNVA) | payer MEDICARE, SELFPAY | PROVIDERS: PCP Internal Medicine | DX: E78.00 Pure hypercholesterolemia, unspecified (principal); E55.9 Vitamin D deficiency, unspecified; N18.9 Chronic kidney disease, unspecified; R35.1 Nocturia; Z79.899 Other long term (current) drug therapy; Z13.31 Encounter for screening for depression | CPT/HCPCS: 96127; 99212 ==

== ENCOUNTER 2025-08-09 07:53 | Outpatient (REF) | payer MEDICARE, SELFPAY ==
--- NOTE | ~2025-08-09 | MM_ITS ---
EXAMINATION: DXA BONE DENSITY AXIAL HISTORY: Z78.0 - Asymptomatic menopausal state TECHNIQUE: Fusion Antibodies Dual energy absorptiometry (DEXA) of the lumbar spine, total left hip, and femoral neck was performed. COMPARISON: There are no prior studies for comparison. FINDINGS: The bone mineral density of the lumbar spine is 1.010 g/cm2, corresponding to a T-score of -1.3, and a Z-score of 0.5. This is indicative of osteopenia. The bone mineral density of the left total hip is 0.724 g/cm2, corresponding to a T-score of -2.2, and a Z-score of -0.5. This is indicative of osteopenia. The bone mineral density of the left femoral neck is 0.738 g/cm2, corresponding to a T-score of -2.2, and a Z-score of -0.2. This is indicative of osteopenia. FRACTURE RISK: The FRAX index suggests a risk of major osteoporotic fracture of 12.7%, and of hip fracture 3.6%. MM/XR DEXA axial skeleton IMPRESSION: Based on bone mineral density, and according to World Health Organization (WHO) criteria, the diagnosis is consistent with osteopenia. Statistically, 68% of repeat scans fall within 1 SD (+/- 0.010 g/cm2 for AP spine L1-L4) and 1 SD (+/- 0.012 g/cm2 for femur total) FRAX is a trademark of the [employer]'s [place] [employer] Metabolic Bone Disease, a World Health Organization (WHO) Collaborating Center. Electronically signed by: Tom Dominguez MD 08/09/2025 08:25 AM EDT
--- OUTSIDE RECORDS SUMMARY | 2025-08-09 07:58 | XMS_ITS | Patient Health Record ---
Author Organization [facility] Address [address] [place] [address] Care Team Providers Care Steam Shovel Operating Engineer Name Role Phone Tabitha (RETIRED) Bob CLEMENTS Primary Care Provide Kobi Merritt Jr Unavailable Allergies Allergen (clinical drug ingredient) Drug/Non Drug Allergy documented on EMR Reaction Allergy Type Onset Date Status season (uncoded) Unknown Allergy Act cal Reason For Referral No Information Medications Medication SIG (Take, Route, Frequency, Duration) Notes Start Date End Date Status Ambien 5 MG 1 tablet at bedtime Orally Once a day 01/15/2023 Active Simvastatin 80 MG Oral; Duration: 90 Active MiraLax (colon prep) 17 GM/SCOOP mixed with Gatorade or Crystal Light Orally begin at 5:00 p.m. the day before the procedure; Duration: 1 day 01/16/2023 Active Immunizations Vaccine Route [...] Problem Status W/U Status Risk Notes Problem Colon cancer screening (854019273) Colon cancer screening (Z12.11) Active confirmed Problem Diarrhea (69082637) Diarrhea, unspecified type (R19.7) Active confirmed Problem Gastroesophageal reflux disease (522732091) Gastroesophageal reflux disease, unspecified whether esophagitis present (K21.9) Active confirmed Plan Of Treatment Future Test Test Name Order Date COLONOSCOPY 01/15/2023 Insurance Providers Payer Name Payer Address Payer Phone Subscriber Number Group Number Insured Name Patient Relationship to Insured Coverage Start Date Coverage End Date [facility] [address] [place], [place] [id number] SINDY HOLMAN Self - patient is the insured [employer] ATT[employer] CLAIMS [address] [place] [address] [id number] SINDY HOLMAN Self - patient is the insured Medical (General) History Medical History History ICD Code Elevated cholesterol Insomnia Colonoscopy 06/23/02, normal, ten-year fo llowup Surgical History Surgery Date(Month/Year)
== END 2025-08-09 07:54 | disposition home or self-care (01) ==
LOC: HO.MAMMO 07:53
DX: Z13.820 Encounter for screening for osteoporosis (principal); Z78.0 Asymptomatic menopausal state
CPT/HCPCS: 77080

== ENCOUNTER → 2025-08-09 08:15 | Outpatient (BNV) | payer MEDICARE, SELFPAY | PROVIDERS: Visit Provider Radiology Diagnostic Radiology | DX: E28.39 Other primary ovarian failure (principal) | CPT/HCPCS: 77080 ==

== ENCOUNTER 2025-08-17 08:49 | Outpatient (REF) | payer MEDICARE, SELFPAY ==
--- OUTSIDE RECORDS SUMMARY | 2025-08-17 09:19 | XMS_ITS | Patient Health Record ---
Author Organization [facility] Address [address] [place] [address] Care Team Providers Care Habitat Biologist Name Role Phone Tabitha (RETIRED) Bob CLEMENTS Primary Care Provide Kobi Merritt Jr Unavailable [phone] Allergies Allergen (clinical drug ingredient) Drug/Non Drug [...] Status Risk Notes Problem Colon cancer screening (722930011) Colon cancer screening (Z12.11) Active confirmed Problem Diarrhea (87612119) Diarrhea, unspecified type (R19.7) Active confirmed Problem Gastroesophageal reflux disease (900926122) Gastroesophageal reflux disease, unspecified whether esophagitis present (K21.9) Active confirmed Plan Of Treatment Future Test Test Name Order Date COLONOSCOPY 01/15/2023 Insurance Providers Payer Name Payer Address Payer Phone Subscriber Number Group Number Insured Name Patient Relationship to Insured Coverage Start Date Coverage End Date [facility] [address] [place], [place] [id number] SINDY HOLMAN Self - patient is the insured [employer] ATT[employer] CLAIMS [address] [place] [address] [id number] SINDY HOLMAN Self - patient is the insured Medical (General) History Medical History History ICD Code Elevated cholesterol Insomnia Colonoscopy 06/23/02, normal, ten-year fo llowup Surgical History Surgery Date(Month/Year)
== END 2025-08-17 08:50 | disposition home or self-care (01) ==
LOC: HO.MAMMO 08:49
DX: Z12.31 Encounter for screening mammogram for malignant neoplasm of breast (principal)
CPT/HCPCS: 77063; 77067

== ENCOUNTER → 2025-08-17 09:15 | Outpatient (BNV) | payer MEDICARE, SELFPAY | PROVIDERS: Visit Provider Radiology Body Imaging | DX: Z12.31 Encounter for screening mammogram for malignant neoplasm of breast (principal) | CPT/HCPCS: 77063; 77067 ==

== ENCOUNTER 2025-10-03 07:20 | Outpatient (REF) | payer MEDICARE, SELFPAY ==
[2025-10-03 07:30] LABS: MANUAL DIFF FLAG NO
--- OUTSIDE RECORDS SUMMARY | 2025-10-03 07:30 | XMS_ITS | Patient Health Record ---
Author Organization [facility] Address [address] [place] [address] Care Team Providers Care Granulator Operator Name Role Phone Tabitha (RETIRED) Bob CLEMENTS Primary Care Provide Kobi Merritt Jr Unavailable [phone] Allergies Allergen (clinical drug ingredient) Drug/Non Drug Allergy documented on EMR Reaction Allergy Type Onset Date Status season (uncoded) Unknown Allergy Act cal Reason For Referral No Information Medications Medication SIG (Take, Route, Frequency, Duration) Notes Start Date End Date Status Ambien 5 MG Tablet 1 tablet at bedtime Orally Once a day 01/15/2023 Active Simvastatin 80 MG Tablet Oral; Duration: 90 Active MiraLax (colon prep) 17 GM/SCOOP Powder mixed with Gatorade or Crystal Light Orally begin at 5:00 p.m. the day before the procedure; Duration: 1 day 01/16/2023 Active Immunizations Vaccine Route Administration Date Status Comme nts Influenza Unknown 07/30/2022 Administered Social History Tobacco Use: Social History Observation Description Date Details (start date - stop date) Never Smoker NA - NA Social History Drugs/Alcohol: Social Info Question Answer Notes Alcohol Screen Did you have a drink containing alcohol in the past year? Yes How often did you have a drink containing alcohol in the past year? Monthly or less (1 point) How many drinks did you have on a typical day when you were drinking in the past year? 1 or 2 drinks (0 point) How often did you have 6 or more drinks on one occasion in the past year? Never (0 point) Points 1 Interpretation Negative Tobacco Use: Social Info Question Answer Notes Tobacco Use/Smoking Patient is a nonsmoker Additional Details Category Social Info Options Details Miscellaneous: Marital status: Occupation: retired Problems Problem Type SNOMED Code ICD Code Onset Dates Problem Status W/U Status Risk Notes Problem Colon cancer screening (450348032) Colon cancer screening (Z12.11) Active confirmed Problem Diarrhea (63846012) Diarrhea, unspecified type (R19.7) Active confirmed Problem Gastroesophageal reflux disease (669460356) Gastroesophageal reflux disease, unspecified whether esophagitis present (K21.9) Active confirmed Plan Of Treatment Future Test Test Name Order Date COLONOSCOPY 01/15/2023 Insurance Providers Payer Name Payer Address Payer Phone Subscriber Number Group Number Insured Name Patient Relationship to Insured Coverage Start Date Coverage End Date [facility] [address] [place], [place] [id number] SINDY HOLMAN Self - patient is the insured [employer] [address] [place] [address] [id number] SINDY HOLMAN Self - patient is the insured Medical (General) History Medical History History ICD Code Elevated cholesterol Insomnia Colonoscopy 06/23/02, normal, [facility] Surgical History Surgery Date(Month/Year)
[2025-10-03 08:04] LABS: Hematocrit 40.8 % (37.0-47.0); Hemoglobin 12.8 g/dl (12.0-16.0); Imm Gran Abs Auto 0.04 X10*3/uL (0.00-0.03); Imm Gran Pct Auto 0.9 % (0.0-0.4); Lymphocytes Absolute Auto 1.6 X10*3/uL (1.2-4.9); Mean Corpuscular HGB Conc 31.4 g/dl (31.0-35.0); Mean Corpuscular Hemoglobin 31.0 pg (27.0-33.0); Mean Corpuscular Volume 98.8 fL (80.0-98.0); NRBC Abs Auto 0.000 X10*3/uL (0.0-0.012); NRBC Pct Auto 0.0 /100WBC (0.0-0.2); Platelet Count 271 X10*3/uL (160-400); Red Blood Count 4.13 X10*6/uL (4.20-5.50); White Blood Count 4.6 X10*3/uL (4.8-10.8)
[2025-10-03 08:48] LABS: Alanine Aminotransferase 11 U/L (0-31); Albumin Level 4.2 g/dL (3.5-5.0); Alkaline Phosphatase 49 U/L (39-117); Anion Gap 11 (12-20); Aspartate Amino Transferase 22 U/L (5-31); Blood Urea Nitrogen 20 mg/dL (9-16); Calcium 9.5 mg/dL (8.4-10.2); Carbon Dioxide 27 mmol/L (22-29); Chloride 108 mmol/L (96-108); Cholesterol 190 mg/dL (<200); Estimated Glomerular Filt Rate 55; HDL Cholesterol 63 mg/dL (>40); Potassium 4.1 mmol/L (3.3-5.1); Sodium 142 mmol/L (135-145); Total Protein 6.9 g/dL (6.5-8.0); Triglycerides 92 mg/dL (<150)
[2025-10-03 09:04] LABS: Free T4 (Free Thyroxine) 1.09 ng/dL (0.71-1.85)
== END 2025-10-03 07:21 | disposition home or self-care (01) ==
LOC: HO.LAB 07:20
DX: Z00.00 Encounter for general adult medical examination without abnormal findings (principal); G47.00 Insomnia, unspecified; E78.00 Pure hypercholesterolemia, unspecified
CPT/HCPCS: 36415; 80053; 80061; 84439; 84443; 85025